=== PATIENT | female | born 1955 | race Caucasian/White ===

== ENCOUNTER 2019-03-02 14:42 | Emergency (ER) | payer BC ==
[~2019-03-02] VITALS: Ht 160 cm; Wt 65.9 kg
--- NOTE | 2019-03-02 14:58 | ED GI ---
General Stated Complaint: NAUSEA Source of Information: Patient, Family Exam Limitations: No Limitations History of Present Illness Date Seen by Provider: Mar 02, 2019 Time Seen by Provider: 14:56 Initial Comments To ER accompanied by with reports of nausea vomiting and diarrhea since Friday night 02/26/19. This began after eating a salad at [employer] the day before. They're concerned about possible Escherichia coli given the recent Escherichia coli outbreak associated with Ariel lettuce. She has had about a 6 lb weiht loss, no fevers, and non bloody diarrhea. Timing/Duration: 2-3 Days Severity/Quality: Cramping Location: Generalized Abdomen Radiation: No Radiation Activities at Onset: None Allergies and Home Medications Allergies Coded Allergies: Penicillins (Verified Allergy, Mild, 03/02/19) Patient Home Medication List Home Medication List Reviewed: Yes Review of Systems Review of Systems Constitutional: see HPI; No fever EENTM: No Symptoms Reported Respiratory: No Symptoms Reported Cardiovascular: No Symptoms Reported Gastrointestinal: See HPI, Abdominal Pain (cramping diffusely), Diarrhea, Nausea; Denies Rectal Bleeding; Vomiting, Other (no blood in stool) Musculoskeletal: no symptoms reported Skin: no symptoms reported Psychiatric/Neurological: No Symptoms Reported Endocrine: No Symptoms Reported Hematologic/Lymphatic: No Symptoms Reported Past Wwtbhzw-Rqxooy-Hqlliy Hx Patient Social History Recent Foreign Travel: No Contact w/Someone Who Travel: No Physical Exam Vital Signs Vital Signs - First Documented 03/02/19 15:26 Temp 36.8 Pulse 74 Resp 18 Pulse Ox 98 O2 Delivery Room Air Capillary Refill : Height/Weight/BMI Height: '" Weight: lbs. oz. kg; BMI Method: General Appearance: WD/WN, no apparent distress HEENT: PERRL/EOMI, normal ENT inspection Respiratory: no respiratory distress, no accessory muscle use Cardiovascular: regular rate, rhythm, no murmur Gastrointestinal: normal bowel sounds, soft, tenderness Extremities: normal range of motion, non-tender Neurologic/Psychiatric: alert, normal mood/affect, oriented x 3 Skin: normal color, warm/dry Progress/Results/Core Measures Results/Orders Lab Results Laboratory Tests Test 03/02/19 15:10 03/02/19 16:25 Range/Units White Blood Count 7.2 4.3-11.0 10^3/uL Red Blood Count 4.85 4.35-5.85 10^6/uL Hemoglobin 13.9 11.5-16.0 G/DL Hematocrit 41 35-52 % Mean Corpuscular Volume 85 80-99 FL Mean Corpuscular Hemoglobin 29 25-34 PG Mean Corpuscular Hemoglobin Concent 34 32-36 G/DL Red Cell Distribution Width 14.4 10.0-14.5 % Platelet Count 288 130-400 10^3/uL Mean Platelet Volume 11.0 H 7.4-10.4 FL Neutrophils (%) (Auto) 60 42-75 % Lymphocytes (%) (Auto) 26 12-44 % Monocytes (%) (Auto) 13 H 0-12 % Eosinophils (%) (Auto) 1 0-10 % Basophils (%) (Auto) 0 0-10 % Neutrophils # (Auto) 4.3 1.8-7.8 X 10^3 Lymphocytes # (Auto) 1.9 1.0-4.0 X 10^3 Monocytes # (Auto) 0.9 0.0-1.0 X 10^3 Eosinophils # (Auto) 0.1 0.0-0.3 10^3/uL Basophils # (Auto) 0.0 0.0-0.1 10^3/uL Sodium Level 140 135-145 MMOL/L Potassium Level 3.4 L 3.6-5.0 MMOL/L Chloride Level 108 H 98-107 MMOL/L Carbon Dioxide Level 22 21-32 MMOL/L Anion Gap 10 5-14 MMOL/L Blood Urea Nitrogen 13 7-18 MG/DL Creatinine 0.70 0.60-1.30 MG/DL Estimat Glomerular Filtration Rate > 60 BUN/Creatinine Ratio 19 Glucose Level 82 70-105 MG/DL Calcium Level 9.2 8.5-10.1 MG/DL Corrected Calcium 8.9 8.5-10.1 MG/DL Total Bilirubin 0.4 0.1-1.0 MG/DL Aspartate Amino Transf (AST/SGOT) 21 5-34 U/L Alanine Aminotransferase (ALT/SGPT) 19 0-55 U/L Alkaline Phosphatase 64 40-136 U/L Total Protein 7.5 6.4-8.2 GM/DL Albumin 4.4 3.2-4.5 GM/DL Lipase 6 L 8-78 U/L Micro Results Microbiology 03/02/19 C. difficile GDH Antigen & Toxins - Final, Complete My Orders Orders - TERRENCE HARMAN APRN Cbc With Automated Diff (03/02/19 14:46) Comprehensive Metabolic Panel (03/02/19 14:46) Ua Culture If Indicated (03/02/19 14:46) Lipase (03/02/19 14:46) Ed Iv/Invasive Line Start (03/02/19 14:46) Ondansetron Injection (Zofran Injectio (03/02/19 15:00) Hyoscyamine Sl Tablet (Levsin Sl Tablet) (03/02/19 15:00) Lactated Ringers (Lr 1000 Ml Iv Solution (03/02/19 15:00) Ketorolac Injection (Toradol Injection) (03/02/19 15:00) Stool Culture (03/02/19 14:54) C Difficile Ag + Toxin A/B. (03/02/19 14:58) Lactated Ringers (Lr 1000 Ml Iv Solution (03/02/19 16:00) Medications Given in ED Current Medications Medications Dose Ordered Sig/Layla Route Start Time Stop Time Status Last Admin Dose Admin Hyoscyamine Sulfate 0.125 mg ONCE ONCE PO 03/02/19 15:00 03/02/19 15:01 DC 03/02/19 15:06 0.125 MG Ketorolac Tromethamine 15 mg ONCE ONCE IVP 03/02/19 15:00 03/02/19 15:01 DC 03/02/19 15:07 15 MG Ondansetron HCl 8 mg ONCE ONCE IVP 03/02/19 15:00 03/02/19 15:01 DC 03/02/19 15:07 4 MG Vital Signs/I&O 03/02/19 15:26 Temp 36.8 Pulse 74 Resp 18 B/P (MAP) Pulse Ox 98 O2 Delivery Room Air Departure Impression Primary Impression: Nausea vomiting and diarrhea Disposition: HOME, SELF-CARE Condition: Improved Departure-Patient Inst. Decision time for Depature: 16:35 Referrals: SELF,ROMEL LAMAS (PCP/Family) Primary Care Physician Patient Instructions: Diarrhea and Traveler's Diarrhea, Adult (DC) Add. Discharge Instructions: 1. Return to ER for any concerns 2. Stay hydrated drinking more than usual and a better choice of liquids would be Gatorade plus water or Pedialyte. Avoid any antidiarrheal agents. Return to ER for any concerns. You should have repeat labs drawn on Friday of this week with your doctor. Use the nausea medication as directed. Scripts Promethazine HCl (Promethazine Tablet) 25 Mg Tablet 25 MG PO Q6H PRN for NAUSEA/VOMITING, #20 TAB Prov: TERRENCE HARMAN APRN 03/02/19 Copy Copies To 1: SELF,TERRENCE GALLAGHER MD, APRN Mar 02, 2019 14:58
[2019-03-02] MEDS ORDERED: KETOROLAC 30 MG/ML VIAL IVP ONE (15:00)
[2019-03-02] MEDS ORDERED: ONDANSETRON 4 MG/2 ML (SDV) Z0FRAN IVP ONE (15:00)
[2019-03-02] MEDS ORDERED: LACTATED RINGERS 1,000 ML IV SCH ×2 (15:00→16:00)
[2019-03-02] MEDS ORDERED: HYOSCYAMINE 0.125 MG (LEVSIN) TAB PO ONE (15:00)
[2019-03-02 15:20] LABS: BASOPHILS % (AUTO) 0 % (0-10); EOSINOPHILS # (AUTO) 0.1 10^3/uL (0.0-0.3); EOSINOPHILS % (AUTO) 1 % (0-10); HEMATOCRIT 41 % (35-52); HEMOGLOBIN 13.9 G/DL (11.5-16.0); LYMPHOCYTES # (AUTO) 1.9 X 10^3 (1.0-4.0); LYMPHOCYTES % (AUTO) 26 % (12-44); MEAN CORPUSCULAR HEMOGLOBIN 29 PG (25-34); MEAN CORPUSCULAR HGB CONC 34 G/DL (32-36); MEAN CORPUSCULAR VOLUME 85 FL (80-99); MONOCYTES # (AUTO) 0.9 X 10^3 (0.0-1.0); MONOCYTES % (AUTO) 13 % (0-12); NEUTROPHILS # (AUTO) 4.3 X 10^3 (1.8-7.8); NEUTROPHILS % (AUTO) 60 % (42-75); PLATELET COUNT 288 10^3/uL (130-400); RED CELL DISTRIBUTION WIDTH 14.4 % (10.0-14.5); WHITE BLOOD COUNT 7.2 10^3/uL (4.3-11.0)
[2019-03-02 15:44] LABS: ALANINE AMINOTRANSFERASE 19 U/L (0-55); ALBUMIN 4.4 GM/DL (3.2-4.5); ALKALINE PHOSPHATASE 64 U/L (40-136); BILIRUBIN,TOTAL 0.4 MG/DL (0.1-1.0); BUN/CREATININE RATIO 19; CALCIUM 9.2 MG/DL (8.5-10.1); CARBON DIOXIDE 22 MMOL/L (21-32); CHLORIDE 108 MMOL/L (98-107); GFR ESTIMATED > 60; GLUCOSE 82 MG/DL (70-105); LIPASE 6 U/L (8-78); POTASSIUM 3.4 MMOL/L (3.6-5.0); SODIUM 140 MMOL/L (135-145); TOTAL PROTEIN 7.5 GM/DL (6.4-8.2)
[2019-03-02 16:33] LABS: BILIRUBIN,URINE NEGATIVE (NEGATIVE); CLARITY,URINE CLEAR; COLOR,URINE YELLOW; GLUCOSE, URINE (UA) NEGATIVE (NEGATIVE); KETONES,URINE TRACE (NEGATIVE); LEUKOCYTE ESTERASE ,URINE NEGATIVE (NEGATIVE); NITRITE,URINE NEGATIVE (NEGATIVE); PROTEIN,URINE NEGATIVE (NEGATIVE)
[2019-03-02] MEDS ORDERED: PROM25TA14 PO (16:37)
[2019-03-02] MEDS ORDERED: RX-ONDANSETRON 4 MG ODT (ZOFRAN) PPK #4 PO STA (16:38)
[2019-03-02 16:44] LABS: BACTERIA,URINE TRACE /HPF
[2019-03-02 17:11] VITALS: BP 127/72
== END 2019-03-02 17:00 | disposition home or self-care (01) ==
LOC: EDUNIT# 14:42 → ER 14:44
DX: R11.2 Nausea with vomiting, unspecified (principal); R19.7 Diarrhea, unspecified; Z88.0 Allergy status to penicillin
CPT/HCPCS: 36415; 80053; 81000; 83690; 85025; 87015; 87045; 87046; 87324; 87449; 87899; 96361; 96374; 96375

== ENCOUNTER → 2019-10-08 | Outpatient (CLI) | payer BC ==
[~2019-10-08] MED LIST: HOLD METFORMIN - RECEIVED CONTRAST 20 ML VIAL IV SCH; IOHEXOL 350 MG/ML 100 ML (OMNIPAQUE 350) VIAL IV ONE; NS 100 ML (IVPB) BAG IV ONE; PROM25TA14 PO
--- NOTE | 2019-10-08 18:53 | Diagnostic Imaging Report ---
PROCEDURE: CT abdomen and pelvis with and without contrast. TECHNIQUE: Precontrast acquisitions were acquired through the abdomen and pelvis. Multiple contiguous axial images were obtained through the abdomen and pelvis after the administration of intravenous contrast. Auto Exposure Controls were utilized during the CT exam to meet ALARA standards for radiation dose reduction. INDICATION: Pain of two weeks' history. FINDINGS: Gallbladder is surgically absent. The liver, bile ducts, spleen, adrenals, and pancreas are unremarkable. The unobstructed kidneys appeared nonacute. There are some very mild hyperdensities within lower pole calyces bilaterally, believed to be tiny nonobstructing stones. The atherosclerotic abdominal aorta is nonaneurysmal and unobstructed. There was no diverticulitis. There is no pericecal inflammation. There are no findings of appendicitis but the appendix itself can never be discretely visualized. No focal inflammatory process. No ascites, abscess, hematoma, or acute fluid collection. No small or large bowel wall thickening. No perienteric or pericolonic edema. No abscess, hematoma, or other fluid collection. IMPRESSION: Probable punctate lower pole nonobstructing renal calculi. No ureteral stone or obstruction. No inflammatory process or acute abnormalities identified. Dictated by: Dictated on workstation # [id number]
== END ==
LOC: RAD 14:15
PROVIDERS: ATTEND Obstetrics & Gynecology
DX: R19.03 Right lower quadrant abdominal swelling, mass and lump (principal)
CPT/HCPCS: 74178

== ENCOUNTER 2019-11-04 15:28 | Outpatient (CLI) | payer BC ==
[~2019-11-04] VITALS: Ht 160 cm; Wt 67.7 kg
[~2019-11-04 15:28] MED LIST changes: +COLL1POW3 PO; -HOLD METFORMIN - RECEIVED CONTRAST 20 ML VIAL IV SCH; -IOHEXOL 350 MG/ML 100 ML (OMNIPAQUE 350) VIAL IV ONE; +METO-333 PO; +MULT-1136 PO; -NS 100 ML (IVPB) BAG IV ONE
== END 2019-11-04 15:43 ==
LOC: PREOP 15:28
PROVIDERS: ATTEND Obstetrics & Gynecology
DX: Z01.818 Encounter for other preprocedural examination (principal)

== ENCOUNTER 2019-11-10 07:03 | Day surgery (SDC) | payer BC ==
[2019-11-10] VITALS (11 sets, daily range): BP systolic 94–155; BP diastolic 55–72
[~2019-11-10] VITALS: Ht 160 cm; Wt 67.7 kg
[2019-11-10] MEDS ORDERED: LEVOFLOXACIN 250 MG/50 ML IVPB 50 ML IV ONE (07:15)
--- NOTE | 2019-11-10 07:18 | Progress Note-Pre Operative ---
Pre-Operative Progress Note H&P Reviewed The H&P was reviewed, patient examined and no changes noted. Date Seen by Provider: Nov 10, 2019 Time Seen by Provider: 07:18 Date H&P Reviewed: Nov 10, 2019 Time H&P Reviewed: 07:18 Pre-Operative Diagnosis: KIMI GUTIERREZ MD Nov 10, 2019 07:18
--- NOTE | 2019-11-10 07:19 | Progress Note-Post Operative ---
Post-Operative Progess Note Surgeon (s)/Community Manager (s) Surgeon KIMI ACUNA MD Community Manager: Christos DRUMMOND Pre-Operative Diagnosis HERNAN Post-Operative Diagnosis SAME Procedure & Operative Findings Date of Procedure 11/10/19 Procedure Performed/Findings PVS AND CYSTOSCOPY Anesthesia Type GENERAL Estimated Blood Loss Estimated blood loss (mL): NEGLIGIBLE Specimens/Packing Specimens Removed NONE Packing: VAGINAL KIMI ACUNA MD Nov 10, 2019 07:19
[2019-11-10] MEDS ORDERED: LACTATED RINGERS 1,000 ML IV PRN (07:28)
[2019-11-10] MEDS ORDERED: MIDAZOLAM 2 MG/2 ML (VERSED) VIAL IV ONE (07:30)
[2019-11-10] MEDS ORDERED: FAMOTIDINE 20MG/2ML IV (PEPCID) IV ONE (07:30)
[2019-11-10] MEDS ORDERED: ONDANSETRON 4 MG/2 ML (SDV) Z0FRAN IV ONE (07:30)
[2019-11-10] MEDS ORDERED: SCOPOLAMINE 1.5 MG (TRANSDERM-SCOP) PATCH TOP ONE (07:30)
[2019-11-10] MEDS ORDERED: D5 LR IV SOLUTION 1,000 ML IV SCH (07:38)
[2019-11-10] MEDS ORDERED: PROMETHAZINE INJ 25 MG/ML (PHENERGAN) AMP IM PRN ×2 (07:45→09:00)
[2019-11-10] MEDS ORDERED: BENZOCAINE/MENTHOL (DERMOPLAST) 60 ML CAN TP PRN ×2 (07:45→09:00)
[2019-11-10] MEDS ORDERED: ESTROGENS CONJ INJECTION 25 MG in WATER (STERILE) FOR INJECTION 5 ML IV ONE ×2 (07:45→09:00)
[2019-11-10] MEDS ORDERED: oxyCODONE/APAP 5/325MG (PERCOCET 5) TABLET PO PRN (07:45)
[2019-11-10] MEDS ORDERED: ONDANSETRON 4 MG/2 ML (SDV) Z0FRAN IVP PRN ×2 (07:45→09:00)
[2019-11-10] MEDS ORDERED: MEPERIDINE (DEMEROL) INJ 100 MG/ML IM PRN ×2 (07:45→09:00)
[2019-11-10 07:46] LABS: BASOPHILS # (AUTO) 0.1 10^3/uL (0.0-0.1); BASOPHILS % (AUTO) 1 % (0-10); EOSINOPHILS # (AUTO) 0.1 10^3/uL (0.0-0.3); EOSINOPHILS % (AUTO) 1 % (0-10); HEMATOCRIT 40 % (35-52); HEMOGLOBIN 13.1 G/DL (11.5-16.0); LYMPHOCYTES # (AUTO) 2.1 X 10^3 (1.0-4.0); LYMPHOCYTES % (AUTO) 29 % (12-44); MEAN CORPUSCULAR HEMOGLOBIN 28 PG (25-34); MEAN CORPUSCULAR HGB CONC 33 G/DL (32-36); MEAN CORPUSCULAR VOLUME 85 FL (80-99); MEAN PLATELET VOLUME 10.7 FL (7.4-10.4); MONOCYTES # (AUTO) 0.6 X 10^3 (0.0-1.0); MONOCYTES % (AUTO) 9 % (0-12); NEUTROPHILS # (AUTO) 4.4 X 10^3 (1.8-7.8); NEUTROPHILS % (AUTO) 61 % (42-75); PLATELET COUNT 291 10^3/uL (130-400); WHITE BLOOD COUNT 7.2 10^3/uL (4.3-11.0)
[2019-11-10] MEDS: LACTATED RINGERS 1,000 ML IV PRN ×2 (07:50→09:14)
[2019-11-10] MEDS ORDERED: BUP/EPI 0.5% 1:200,000 (SENSORCAINE) 30 ML VIAL ONE (08:23)
[2019-11-10] MEDS ORDERED: fentaNYL INJECTION 100 MCG/2 ML AMP ONE (08:32)
[2019-11-10] MEDS ORDERED: MIDAZOLAM 2 MG/2 ML (VERSED) VIAL ONE (08:34)
[2019-11-10] MEDS ORDERED: LIDOCAINE PF 2% 5 ML (XYLOCAINE) VIAL ONE (08:35)
[2019-11-10] MEDS ORDERED: WATER (STERILE) FOR INJECTION 10 ML ONE ×2 (08:35→11:08)
[2019-11-10] MEDS ORDERED: proPOfol 200 MG/20 ML (DIPRIVAN) VIAL IV ONE (08:35)
[2019-11-10] MEDS ORDERED: ceFAZolin INJECTION 1,000 MG ONE (08:35)
[2019-11-10] MEDS ORDERED: ROCURONIUM 10 MG/ML 5 ML SYRINGE IV ONE (08:36)
[2019-11-10] MEDS ORDERED: SEVOFLURANE (ULTANE) 15 ML INHAL SOLN ONE ×6 (08:36→10:29)
[2019-11-10] MEDS ORDERED: ONDANSETRON 4 MG/2 ML (SDV) Z0FRAN ONE (08:37)
--- NOTE | 2019-11-10 08:44 | Progress Note-Pre Operative ---
Pre-Operative Progress Note H&P Reviewed The H&P was reviewed, patient examined and no changes noted. Date Seen by Provider: Nov 10, 2019 Time Seen by Provider: 08:44 Date H&P Reviewed: Nov 10, 2019 Time H&P Reviewed: 08:44 Pre-Operative Diagnosis: vaginal prolapse/stress urinary incontinence/ovarian mass JONNIE DRUMMOND MD Nov 10, 2019 08:44
--- NOTE | 2019-11-10 08:45 | Progress Note-Post Operative ---
Post-Operative Progess Note Surgeon (s)/Respiratory Care Faculty (s) Surgeon JONNIE DRUMMOND MD Respiratory Care Faculty: Christos DRUMMOND Pre-Operative Diagnosis vaginal prolapse/stress urinary incontinence/ovarian mass Post-Operative Diagnosis same with pelvic adhesions, abnormal appendix, and pathology pending Procedure & Operative Findings Date of Procedure 11/10/19 Procedure Performed/Findings laparoscopic oophorectomy/anterior posterior vaginal repairs with and enterocele repair, Sacrospinous ligament fixation, LS appendectomy, extensive LS adhesiolysis - as well as pubovaginal sling and cysto by Dr. Alvarado Anesthesia Type GETA Estimated Blood Loss Estimated blood loss (mL): 100 cc Specimens/Packing Specimens Removed tube and ovary, appendix Packing: VAGINAL JONNIE DRUMMOND MD Nov 10, 2019 08:45
[2019-11-10] MEDS ORDERED: ESTRADIOL VAGINAL CREAM 42.5 GM (ESTRACE) VG ONE (08:51)
[2019-11-10] MEDS: KETOROLAC 30 MG/ML VIAL IVP SCH ×2 (09:00→15:00)
[2019-11-10] MEDS ORDERED: KETOROLAC 30 MG/ML VIAL ONE (10:28)
[2019-11-10] MEDS ORDERED: ESTROGENS CONJ IV 25 MG/5 ML (PREMARIN) VIAL ONE (11:07)
[2019-11-10] MEDS ORDERED: fentaNYL INJECTION 100 MCG/2 ML AMP IVP ONE (11:15)
[2019-11-10] MEDS ORDERED: morphine INJ 10 MG/ML 1ML (SYR OR VIAL) IVP ONE (11:15)
[2019-11-10] MEDS ORDERED: PROMETHAZINE INJ 25 MG/ML (PHENERGAN) AMP IVP ONE (11:15)
[2019-11-10] MEDS: ONDANSETRON 4 MG/2 ML (SDV) Z0FRAN IVP PRN ×2 (11:33→12:33)
--- NOTE | 2019-11-10 12:10 | NUR ---
HENRY RAMOS admitted to room 3304-1, with an admitting diagnosis of postop A/P, cytso pubo vag sling, on 11-10-19 from recovery via bed, accompanied by staff. HENRY RAMOS introduced to surroundings, call light, bed controls, phone, TV, temperature control, lights, meal times, smoking policy, visitor policy, side rail policy, bathrooms and showers. Patient Rights given to patient in the handbook. HENRY RAMOS verbalizes understanding that [facility] is not responsible for the loss or damage to any personal effects or valuables that are kept in the patients posession during their hospitalization. The following Patient Care Plans were discussed with the patient: Discharge Planning, pain management , postop poc. HENRY RAMOS verbalizes understanding of Interdisciplinary Patient Education. Patient and/or family were informed about the Rapid Response Team and its purpose.
--- NOTE | 2019-11-10 13:33 | OPERATIVE REPORT ---
DATE OF SERVICE: 11/10/2019 PREOPERATIVE DIAGNOSIS: On my part, stress urinary incontinence. POSTOPERATIVE DIAGNOSIS: On my part, stress urinary incontinence. OPERATION PERFORMED: Pubovaginal sling and cystoscopy. SURGEON: Velasquez Acuna MD ANESTHESIA: General. COMPLICATIONS: None. DESCRIPTION OF PROCEDURE: Under satisfactory general anesthesia with the patient in lithotomy position after Dr. Cruz performed the first part of his surgery that he will dictate. I went ahead and inserted a Reza catheter, draining clear urine. I passed the Solyx device on both sides using the described technique. The sling was sitting nicely under the mid urethra with no twisting, no tension and passage of a curved hemostat easily between it and the underlying urethra. I removed the Reza catheter and performed cystoscopy to confirm the integrity of the bladder, ureteral orifices and urethra with no foreign body and presence of the sling under the mid urethra. I left the bladder at least removed the cystoscope, performed a manual Valsalva maneuver and was negative. I reinserted the Reza catheter, draining clear fluid. Estimated blood loss on my part negligible. Then, Dr. Cruz proceeded with the rest of his surgery that he will dictate. Job ID: [id number] DocumentID: [id number] Dictated Date: 11/10/2019 10:13:00 Jacquard Card Cutter Date: 11/10/2019 13:32:52 Dictated By: VELASQUEZ ACUNA MD
--- NOTE | 2019-11-10 14:02 | OPERATIVE REPORT ---
DATE OF SERVICE: 11/10/2019 PREOPERATIVE DIAGNOSES: Pelvic mass, vaginal prolapse and stress urinary incontinence. POSTOPERATIVE DIAGNOSES: Pelvic mass, vaginal prolapse and stress urinary incontinence with inflamed, extensively scarred appendix, pelvic adhesions. OPERATIVE PROCEDURE: Laparoscopic extensive adhesiolysis, laparoscopic appendectomy and laparoscopic left oophorectomy as well as anterior and posterior vaginal repairs with enterocele repair and sacrospinous ligament suspension with Dr. Minor also doing a pubovaginal sling and cystoscopy. OPERATIVE DESCRIPTION: With the patient in the supine position under satisfactory general anesthesia, she was repositioned in dorsal lithotomy position in the [facility] and prepped and draped in the usual fashion for abdominal and vaginal surgery. A moistened Kerlix was placed in the vagina to distend the upper vagina for localization. The patient was brought in low dorsal lithotomy position after emptying her urinary bladder with a Reza catheter. A 5 mm incision made in the patient's left upper quadrant. Veress needle was placed through that incision into the abdominal cavity. Correct placement was confirmed with water drop test. The abdomen was insufflated with 2.4 liters of carbon dioxide and the Veress needle was removed and a 5 mm Optiview laparoscopic port placed under direct vision. The abdominal wall was transilluminated. Ports of 12 mm and 5 mm were placed infraumbilically and suprapubically respectively through incisions of those sizes. All three incision sites were infiltrated with 0.25% Marcaine with epinephrine prior to incision and port placement. The patient was placed in Trendelenburg, allowing the bowel spill partially above the pelvis. There was a sigmoid adherent to the left pelvic brim and obstructing view of the left ovary. The cecum was densely adherent to the round ligament on the right and to the bladder and to the right pelvic sidewall. The appendix was adherent down into the pelvic side wall and to the ovarian fossa and to the back of the uterus and to the round ligament. The appendix was inflamed and enlarged looking. The extensive adhesiolysis was undertaken to free the appendix and the cecum from their adhesions. Once it was completely released, then the pelvis was essentially normal at that point, decision was made to go ahead with appendectomy. The mesoappendix was divided over close to the base of the appendix and then the Endo-RIDDHI was placed across the base of the appendix and the balance of the mesoappendix then fired, severing it from its attachments. The stump of the appendix was treated with several drops of Betadine solution. The appendix was placed in the Endobag. Prior to using the Endobag, the left ovary was exposed by releasing the adhesions of the sigmoid to the left pelvic sidewall and left pelvic brim and the left IP ligament. With that done, and then an Endo-RIDDHI was placed across the IP ligament, fired, a second firing of that instrument across the mesovarium severed the ovary from its attachments. The ovary was then placed in the Endobag with the appendix and that was brought out through the umbilical incision. That tissue was sent to pathology for permanent section. The pelvis was examined for hemostasis, that being complete with no remaining abnormal pathology, the procedure was terminated. The operative instruments were removed under direct vision as were the ports. The abdomen was evacuated of insufflating gas in the process of removing the ports. The skin incisions were closed with suture after first closing the fascia at the infraumbilical incision with oynysq-pa-[id number] suture of 2-0 Vicryl. Attention was now turned to the pelvis. The patient was repositioned in dorsal lithotomy position. Weighted speculum placed in posterior fornix of vagina. The anterior vaginal wall was grasped with two Latonia clamps near its midline. An opening was made in the midline of the vaginal wall and extended from approximately 1.5 cm from the urethral meatus to the apex of the vagina. The vaginal wall was then carefully dissected off the muscularis of the vagina. The bladder wall was carefully dissected off the muscularis of the vagina back to the pubic rami bilaterally. The patient had a relatively large cystocele comprising a third-degree prolapse. The bladder was reduced. The endopelvic fascia was plicated along with the bladder wall, elevating the bladder and lengthening the urethra and restoring the bladder to its normal anatomic position. At this point, Dr. Minor assumed care of the patient. I remained to assist. Dr. Minor performed the pubovaginal sling and cystoscopy with no difficulties. He got good support and reported normal cystoscopy. Dr. Minor on completion of his portion, he turned up care of the patient to me. I resumed care of the patient, resected redundant anterior vaginal wall muscularis mucosa and closed the vaginal wall with a running locked suture of 3-0 Vicryl Rapide. Good support was evident and good hemostasis was achieved. Posterior repair was then affected by placing Latonia clamps on the perineum and hymenal ring at the 5 and 7 o'clock position, an inverted triangle of skin was removed from the perineal body and upright triangle from the posterior vaginal floor. The rectovaginal space was entered sharply and dissected bluntly to the apex of the vagina where it was explored for an enterocele, there was a small one was left intact. It was closed for the time being. Dissection was then carried over through the right rectal pillar to the right ischial spine into the sacrospinous ligament. The Capio device was loaded with Ethibond suture and that was placed through the sacrospinous ligament just approximately 1 cm medial to the ischial spine. A second suture was placed 0.5 cm medial to that. Both arms of both sutures were brought out through the apex of the vagina, tagged and held long for tying later. The rectovaginal space was obliterated after first using a pursestring suture to obliterate the enterocele. With that done, the rectovaginal space was obliterated with additional sutures of 2-0 Vicryl. The perineal body was restored with additional sutures of 2-0 Vicryl. Redundant posterior vaginal muscularis mucosa was removed sharply. The vaginal wall was closed with running locked suture of 3-0 Vicryl Rapide, that closure was continued past the hymenal ring down on the perineal body then back up subcutaneous to the hymenal ring where the suture was tied. Good support was evident. There was some bleeding in the midportion of the posterior vaginal wall closure. A single suture in a bwiwek-dx-[id number] fashion of 2-0 Vicryl was placed to affect hemostasis. Hemostasis was complete. The sacrospinous ligament suspension sutures were tied; as each was tied, the apex of the vagina was brought well back up into the pelvis. Those sutures were cut short. The vagina was examined for hemostasis that being complete and sponge and needle count being correct, the vagina was filled with Estrace vaginal cream and a pack of Kerlix gauze was placed. The Reza catheter was left to dependent drainage, it was draining clear yellow urine. Sponge and needle counts were correct. Blood loss was around 100 mL. The patient tolerated the procedure well and was uneventfully awakened from her general anesthesia and transferred to the recovery room in stable condition. Job ID: [id number] DocumentID: [id number] Dictated Date: 11/10/2019 10:52:55 Environmental Aid Date: 11/10/2019 14:01:19 Dictated By: JONNIE DRUMMOND MD MTDD
[2019-11-10] MEDS: D5 LR IV SOLUTION 1,000 ML IV SCH ×3 (15:30→22:43)
[2019-11-10] MEDS: KETOROLAC 15 MG/ML VIAL IVP SCH (17:53)
[2019-11-10] MEDS ORDERED: ESTR1TAB24 PO (20:49)
[2019-11-10] MEDS ORDERED: IBUP-1780 PO (20:49)
[2019-11-10] MEDS ORDERED: DCS100C PO (20:49)
[2019-11-10] MEDS ORDERED: OXYC1TAB87 PO (20:49)
--- NOTE | 2019-11-10 20:51 | Discharge Inst-Surgical ---
Discharge Inst-Surgical Depart Medication/Instructions New, Converted or Re-Newed RX: RX on Chart Consults/Follow Up Patient Instructions: as directed Orders & Referrals Follow Up Appt: RTC with me in 1 week for suture removal Call to make follow up appt. for patient in [address] Minor per his instructions Activity: Rest for 24 hours, than as tolerated. Wound Care: May remove Band-Aid tomorrow. Replace as desired. Keep incisions clean and dry. Wash daily with soap and water. Please call in RX to patient pharmacy. Diet: As tolerated-Clear Liquids only if nauseated. shower or tub bathe as desired. No driving for 24 hours, no alcoholic beverages for 24 hours, and nothing per vagina (no tampons, douching, or intercourse) for 4 weeks. Patient to return to the clinic as soon as possible for: Temperature greater than 101F, Severe Pain, Foul discharge from incision or vagina, Excessive Bleeding (more than a period). Activity Activity as Tolerated: No Diet Discharge Diet: No Restrictions JONNIE DRUMMOND MD Nov 10, 2019 20:51
[2019-11-11 00:45] VITALS: BP 119/64
[2019-11-11] MEDS: KETOROLAC 15 MG/ML VIAL IVP SCH ×3 (00:45→07:28)
[2019-11-11 03:55] VITALS: BP 126/58
[2019-11-11] MEDS: oxyCODONE/APAP 5/325MG (PERCOCET 5) TABLET PO PRN ×5 (05:35→21:42)
--- NOTE | 2019-11-11 08:06 | Progress Note ---
Standard Progress Note Progress Notes/Assess & Plan Date Seen by a Provider: Nov 11, 2019 Time Seen by a Provider: 07:56 Progress/Assessment & Plan this patient is without complaint. She does have some soreness in the surgical sites but has good pain control. She is not having any problems with nausea. She has not voided as of yet. Patient's called and I have talked to him on the telephone. He has reservations about her going home but I have reassured him that if all is well, it would be safe for her to go hometoday, if not we will not discharge her Vital Signs Date Time Temp Pulse Resp B/P (MAP) Pulse Ox O2 Delivery O2 Flow Rate FiO2 11/11/19 03:55 37.0 60 18 126/58 (80) 97 Room Air 11/11/19 00:45 37.2 58 18 119/64 (82) 96 Room Air 11/10/19 20:15 37.0 66 18 118/64 (82) 95 Room Air 11/10/19 20:15 95 Room Air 11/10/19 16:00 36.8 50 18 133/62 (85) 100 Room Air 11/10/19 13:05 36.7 46 16 118/66 (83) 99 Room Air 11/10/19 12:20 36.7 42 16 104/61 (75) 95 Room Air 11/10/19 12:20 95 Room Air 11/10/19 11:50 36.3 14 113/57 (75) 100 Room Air 11/10/19 11:50 Room Air 11/10/19 11:40 OxyMask 2 11/10/19 11:40 14 105/56 (72) 100 OxyMask 2 11/10/19 11:30 OxyMask 4 11/10/19 11:30 14 108/57 (74) 100 OxyMask 4 11/10/19 11:20 15 107/57 (74) 100 OxyMask 6 11/10/19 11:20 OxyMask 6 11/10/19 11:10 17 103/58 (73) 100 OxyMask 8 11/10/19 11:06 OxyMask 8 11/10/19 10:56 36.2 16 94/55 (68) 96 OxyMask 10 11/10/19 10:56 OxyMask 10 I & O 11/11/19 07:00 Intake Total 4610 ml Output Total 1975 ml Balance 2635 ml Vital signs are stable. Patient is afebrile. The abdomen is benign. The surgical incision dressings are clean and dry. Extremities show no clubbing cyanosis. There is no Homans sign. Assessment and plan postoperative day number 1 doing well. Plan is for routine convalescence care with discharge home when patient is ambulating, voiding, tolerating oral intake well, has good pain control, and bladder function is adequate. JONNIE DRUMMOND MD Nov 11, 2019 08:06
[2019-11-11 08:49] VITALS: BP 129/87
[2019-11-11] MEDS ORDERED: DOCUSATE SODIUM 100 MG (COLACE) CAP PO SCH (09:00)
--- NOTE | 2019-11-11 09:00 | NUR ---
coffee to bedside table. plan of care discussed with pt.
[2019-11-11] MEDS: DOCUSATE SODIUM 100 MG (COLACE) CAP PO SCH ×2 (09:43→21:35)
[2019-11-11] MEDS: ESTRADIOL 1 MG TAB (ESTRACE) PO SCH (09:43)
--- NOTE | 2019-11-11 10:07 | NUR ---
assisted up to bathroom, did not tolerate ambulating well due to increased pain with standing and walking. No void, pericare and pad/underwear on. Assisted back to bed. pt reports once in bed felt much better. Pt to HF position and to eat breakfast.
--- NOTE | 2019-11-11 11:14 | NUR ---
Assisted up to bathroom, toleratale ambulation slightly better. no void, pericare. assisted back to bed and pt requests pain pill. plan of care reviewed. pt states "I feel like I need to pee." bladder scan done 390ml noted. will notify dr braswell
--- NOTE | 2019-11-11 11:28 | NUR ---
Dr Minor to see patient and review plan of care.
[2019-11-11] MEDS: IBUPROFEN 800 MG (MOTRIN) TAB PO SCH ×2 (11:45→18:10)
--- NOTE | 2019-11-11 11:53 | Progress Note - Urology ---
Progress Note-Urology Progress Notes/Assess & Plan Progress/Assessment & Plan RECOVERED WELL BUT UNABLE TO VOID. NO LEAK. PLAN STRAIGHT CATH AND KEEP TONIGHT Final Diagnosis INCONTINENCE KIMI ACUNA MD Nov 11, 2019 11:53
[2019-11-11] MEDS ORDERED: IBUPROFEN 800 MG (MOTRIN) TAB PO SCH (12:00)
--- NOTE | 2019-11-11 12:00 | NUR ---
St cath done 600ml clear yellow urine output. plan of care reviewed. pt reports pressure is much better.
[2019-11-11 12:49] VITALS: BP 129/67
--- NOTE | 2019-11-11 12:50 | NUR ---
no IS in room, will notify respiratory of need.
--- NOTE | 2019-11-11 13:25 | NUR ---
respiratory notifiied of IS order
--- NOTE | 2019-11-11 15:29 | NUR ---
Assisted up to void, no void, pericare
--- NOTE | 2019-11-11 15:47 | Anesthesia-General Post-Op ---
General Patient Condition Mental Status/LOC: Same as Preop Cardiovascular: Satisfactory Nausea/Vomiting: Absent Respiratory: Satisfactory Pain: Controlled Complications: Absent Post Op Complications Complications None Follow Up Care/Instructions Patient Instructions None needed. Anesthesia/Patient Condition Patient Condition Patient was seen this morning and she was doing well, no complaints, stable vital signs, no apparent adverse anesthesia problems. AIDEE BIRMINGHAM DO Nov 11, 2019 15:47
[2019-11-11 17:06] VITALS: BP 133/71
[2019-11-11 21:35] VITALS: BP 129/60
[2019-11-12] VITALS: BP 128/64
[2019-11-12 04:25] VITALS: BP 141/63
[2019-11-12] MEDS: oxyCODONE/APAP 5/325MG (PERCOCET 5) TABLET PO PRN ×2 (04:25→10:56)
[2019-11-12] MEDS: IBUPROFEN 800 MG (MOTRIN) TAB PO SCH ×2 (04:25→11:32)
--- NOTE | 2019-11-12 07:23 | Progress Note ---
Standard Progress Note Progress Notes/Assess & Plan Date Seen by a Provider: Nov 12, 2019 Time Seen by a Provider: 07:21 Progress/Assessment & Plan this patient is without complaint. She does have some soreness in the surgical sites but has good pain control. She is not having any problems with nausea. She has not voided as of yet. Patient's called and I have talked to him on the telephone. He has reservations about her going home but I have reassured him that if all is well, it would be safe for her to go hometoday, if not we will not discharge her Vital Signs Date Time Temp Pulse Resp B/P (MAP) Pulse Ox O2 Delivery O2 Flow Rate FiO2 11/11/19 03:55 37.0 60 18 126/58 (80) 97 Room Air 11/11/19 00:45 37.2 58 18 119/64 (82) 96 Room Air 11/10/19 20:15 37.0 66 18 118/64 (82) 95 Room Air 11/10/19 20:15 95 Room Air 11/10/19 16:00 36.8 50 18 133/62 (85) 100 Room Air 11/10/19 13:05 36.7 46 16 118/66 (83) 99 Room Air 11/10/19 12:20 36.7 42 16 104/61 (75) 95 Room Air 11/10/19 12:20 95 Room Air 11/10/19 11:50 36.3 14 113/57 (75) 100 Room Air 11/10/19 11:50 Room Air 11/10/19 11:40 OxyMask 2 11/10/19 11:40 14 105/56 (72) 100 OxyMask 2 11/10/19 11:30 OxyMask 4 11/10/19 11:30 14 108/57 (74) 100 OxyMask 4 11/10/19 11:20 15 107/57 (74) 100 OxyMask 6 11/10/19 11:20 OxyMask 6 11/10/19 11:10 17 103/58 (73) 100 OxyMask 8 11/10/19 11:06 OxyMask 8 11/10/19 10:56 36.2 16 94/55 (68) 96 OxyMask 10 11/10/19 10:56 OxyMask 10 I & O 11/11/19 07:00 Intake Total 4610 ml Output Total 1975 ml Balance 2635 ml Vital signs are stable. Patient is afebrile. The abdomen is benign. The surgical incision dressings are clean and dry. Extremities show no clubbing cyanosis. There is no Homans sign. Assessment and plan postoperative day number 1 doing well. Plan is for routine convalescence care with discharge home when patient is ambulating, voiding, tolerating oral intake well, has good pain control, and bladder function is adequate. November 12, 2019 Patient is without complaint except inability to void. She has good pain control. Patient is ambulating, tolerating oral intake well Vital Signs Date Time Temp Pulse Resp B/P (MAP) Pulse Ox O2 Delivery O2 Flow Rate FiO2 11/12/19 04:25 36.9 53 18 141/63 (89) 96 Room Air 11/12/19 00:00 37.0 60 18 128/64 (85) 96 Room Air 11/11/19 21:35 37.4 58 18 129/60 (83) 96 Room Air 11/11/19 21:35 96 Room Air 11/11/19 17:06 37.5 58 18 133/71 (91) 95 Room Air 11/11/19 13:36 Room Air 11/11/19 12:49 37.1 65 18 129/67 (87) 97 Room Air 11/11/19 09:11 96 Room Air 11/11/19 08:49 37.5 56 18 129/87 (101) 96 Room Air I & O 11/12/19 07:00 Intake Total 1860 ml Output Total 1825 ml Balance 35 ml Vital signs are stable. Patient is afebrile. The abdomen is benign. The surgical incisions are clean dry and intact Extremities show no clubbing or cyanosis. There is no Homans sign. Pelvic exam is deferred Assessment and plan postoperative day number 2 doing well. Patient is ready for discharge home from my perspective. However patient has urinary retention and management is per Dr. Alvarado. Final Diagnosis vaginal prolapse and urinary incontinence JONNIE DRUMMOND MD Nov 12, 2019 07:23
[2019-11-12] MEDS: ESTRADIOL 1 MG TAB (ESTRACE) PO SCH (08:15)
[2019-11-12] MEDS: DOCUSATE SODIUM 100 MG (COLACE) CAP PO SCH (08:15)
[2019-11-12 08:25] VITALS: BP 116/57
--- NOTE | 2019-11-12 08:25 | NUR ---
Pt states she has attempted to void without success. 09 Dr Minor called to inquire of pt status. Physician ordered wilcox catheter to be inserted and to go to office 11/15 for wilcox removal. 914 Pt uncomfortable due to sensation of full bladder. Wilcox inserted with 500 ml of clear urine. 09 Dr Minor here - made rounds and discussed with pt the option of self cath. Pt states she prefers this and wants to learn. 1200 Pt states she is feeling bladder spasms. Pt desire wilcox to be d c'd. Pt now nervous about learning self cath. Wants to wait on 's arrival so he can learn. Pt felt relief from bladder spasms after wilcox was removed (1500ml). Light pink-red vaginal bleeding. 1400 Pt's arrived and demonstrated intermittent catheterization. Hand out given - female self cath. seems confident of procedure. Discussed per handout - anatomy, infections signs and symptoms, how to clean catheter and measuring of urine from cath and urination. Called in scripts including Cipro. 1505 Discharge to home via wheelchair.
[2019-11-12] MEDS ORDERED: CIPR-225 PO (10:31)
[2019-11-12] MEDS ORDERED: TRAM50TA3 PO (10:35)
[2019-11-12 13:35] VITALS: BP 116/57
[2019-11-13] MEDS ORDERED: PATCH REMOVAL TP NR (07:30)
== END 2019-11-12 15:05 | disposition home or self-care (01) ==
LOC: SDC 07:03 → WS 12:10 → SDC 11-12 15:05
PROVIDERS: ATTEND Obstetrics & Gynecology
DX: N83.8 Other noninflammatory disorders of ovary, fallopian tube and broad ligament (principal); N39.3 Stress incontinence (female) (male); N81.10 Cystocele, unspecified; N73.6 Female pelvic peritoneal adhesions (postinfective); N81.5 Vaginal enterocele; I10 Essential (primary) hypertension; E11.9 Type 2 diabetes mellitus without complications; Z79.899 Other long term (current) drug therapy; Z79.84 Long term (current) use of oral hypoglycemic drugs; Z88.0 Allergy status to penicillin; Z90.49 Acquired absence of other specified parts of digestive tract; Z90.710 Acquired absence of both cervix and uterus
CPT/HCPCS: 57265; 57288; 58661; 82962; 85025; 87081; 88304; 88305; C1771; 36415

== ENCOUNTER 2021-02-08 12:21 | Outpatient (CLI) | payer BC ==
[~2021-02-08] VITALS: Ht 160 cm; Wt 68.0 kg
[2021-02-08 12:15] VITALS: BP 132/78
[~2021-02-08 12:21] MED LIST changes: +CIPR-225 PO; +DOCU-239 PO; +ESTR1TAB24 PO; +IBUP-1780 PO; +OXYC1TAB87 PO; +TRAM50TA3 PO
[2021-02-08] MEDS ORDERED: diphenhydrAMINE 50 MG/ML INJ (BENADRYL) IV PRN (13:30)
[2021-02-08] MEDS ORDERED: EPINEPHrine INJECTION 1 MG/ML AMP IM PRN (13:30)
[2021-02-08] MEDS ORDERED: ONDANSETRON 4 MG/2 ML (SDV) Z0FRAN IV PRN (13:30)
[2021-02-08] MEDS ORDERED: CASIRIVIMAB/IMDEVIMAB 1,200 MG in NS (IVPB) 250 ML IV ONE (13:30)
[2021-02-08] MEDS ORDERED: ACETAMINOPHEN 500 MG TAB (TYLENOL) PO PRN (13:30)
[2021-02-08 14:23] VITALS: BP 126/56
== END 2021-02-08 15:10 | disposition home or self-care (01) ==
LOC: INFUSION 12:21
PROVIDERS: ATTEND Family Medicine
DX: U07.1 COVID-19 (principal)

== ENCOUNTER 2022-11-18 18:35 | Emergency (ER) | payer MEDICARE, OTHER ==
[~2022-11-18] VITALS: Ht 160 cm; Wt 77.7 kg
--- NOTE | 2022-11-18 18:40 | ED Fall/Injury ---
General Stated Complaint: FALL History of Present Illness Date Seen by Provider: Nov 18, 2022 Time Seen by Provider: 18:39 Initial Comments 67-year-old female fell and hit the side of her rainbows in her truck yesterday. She is having left-sided pain that is not better today and has pain with a deep breath in her left rib area. Presents because she has family members and wanted to get checked out Allergies and Home Medications Allergies Coded Allergies: Penicillins (Verified Allergy, Severe, ANAPHYLAXIS, 02/08/21) PT HAS RECEIVED ANCEF AND KEFLEX IN THE PAST WITH NO ISSUES Patient Home Medication List Home Medication List Reviewed: Yes Ciprofloxacin HCl (Cipro) 500 Mg Tablet, 500 MG PO BID Prescribed by: THELMA LYLE on 11/12/19 103 Collagen, Hydrolysate (Bovine) (Collagen Hydrolysate) 1 Gm Powder, 1 GM PO DAILY, (Reported) Entered as Reported by: GIBSON CANNON on 11/04/191511 Docusate Sodium (Dok) 100 Mg Capsule, 100 MG PO BID Prescribed by: JONNIE RICARDO on 11/10/192048 Estradiol (Estradiol Tablet) 1 Mg Tablet, 1 MG PO DAILY Prescribed by: JONNIE RICARDO on 11/10/192048 Ibuprofen (Ibuprofen) 800 Mg Tablet, 800 MG PO Q6HR Prescribed by: JONNIE RICARDO on 11/10/192048 Metoprolol Tartrate (Metoprolol Tartrate) 25 Mg Tablet, 25 MG PO BID, (Reported) Entered as Reported by: GIBSON CANNON on 11/04/191511 Multivitamin (Multivitamin) 1 Each Tablet, 1 EACH PO DAILY, (Reported) Entered as Reported by: GIBSON CANNON on 11/04/191511 Oxycodone HCl/Acetaminophen (Percocet 5-325 mg Tablet) 1 Each Tablet, 1 TAB PO Q4H PRN for PAIN-MODERATE (5-7) Prescribed by: JONNIE RICARDO on 11/10/192048 Tramadol HCl (Tramadol HCl) 50 Mg Tablet, 50 MG PO Q4H Prescribed by: THELMA LYLE on 11/12/19 103 Review of Systems Review of Systems Constitutional: see HPI Eyes: No Symptoms Reported Ears, Nose, Mouth, Throat: no symptoms reported Respiratory: see HPI Cardiovascular: no symptoms reported Gastrointestinal: no symptoms reported Genitourinary: no symptoms reported Musculoskeletal: see HPI Skin: no symptoms reported Psychiatric/Neurological: No Symptoms Reported Past Qbhagat-Fqdjkq-Fjgavg Hx Seasonal Allergies Seasonal Allergies: Yes (MILD) Past Medical History Surgeries: Yes (NECK ) Gallbladder, Hysterectomy Respiratory: No Currently Using CPAP: No Currently Using BIPAP: No Cardiac: Yes Hypertension Neurological: No 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 oz. kg; 26.44 BMI Method: General Appearance: WD/WN, no apparent distress Neck: full range of motion, supple Cardiovascular: normal peripheral pulses, regular rate, rhythm Respiratory: lungs clear, normal breath sounds, other (Tenderness left chest wall) Gastrointestinal: non tender, soft Extremities: normal range of motion Neurologic/Psychiatric: alert, normal mood/affect, oriented x 3; No abnormal gait Skin: normal color, warm/dry Progress/Results/Core Measures Results/Orders My Orders Orders - PRACHI EPPS DO Ribs/Unilateral With Chest (11/18/22 18:50) Vital Signs/I&O 11/18/22 18:43 Temp 36.7 Pulse 62 Resp 14 B/P (MAP) 160/73 (102) Pulse Ox 99 O2 Delivery Room Air Progress Progress Note : Progress Note Patient's x-rays ordered reviewed with initial interpretation of negative by me with final interpretation per radiology report. Patient with likely rib contusion. Discussed supportive care including Tylenol, ibuprofen, topical lidocaine and topical Voltaren. Patient was stable and discharged home Diagnostic Imaging Diagonstic Imaging: Xray Plain Films/CT/US/NM/MRI: chest Comments Date of Exam:11/18/22 RIBS/UNILATERAL WITH CHEST INDICATION: Fall, left-sided rib pain, limited inspiratory volumes. FINDINGS: Frontal chest and three-view left rib series performed. No lung contusion, pneumothorax, or hemothorax. Diaphragms are smooth. No free air beneath the diaphragms. Lungs are clear. The oblique left rib series showed no rib fracture deformity or bony destruction. No focal pleural hematoma evident. No chest wall gas. IMPRESSION: Unremarkable frontal chest and left rib series. Departure Impression Primary Impression: Contusion of rib on left side Qualified Codes: S20.212A - Contusion of left front wall of thorax, initial encounter Additional Impression: Fall Qualified Codes: W19.XXXA - Unspecified fall, initial encounter Disposition: HOME, SELF-CARE Condition: Stable Departure-Patient Inst. Referrals: ROMEL MARKS MD (PCP/Family) Primary Care Physician Patient Instructions: Bruised Rib, Minor Contusion ED Add. Discharge Instructions: 4% topical lidocaine cream, gel or patch use as directed on package as needed for pain. Voltaren/diclofenac cream or gel use as directed on package as needed for pain. Tylenol or ibuprofen as needed. Warm moist heat 10 to 15 minutes at a time 3-4 times daily. Follow-up with your primary care provider if symptoms have not improved over the 7 to 10 days. PRACHI EPPS DO Nov 18, 2022 18:40
[2022-11-18 18:43] VITALS: BP 160/73
--- NOTE | 2022-11-18 19:14 | Diagnostic Imaging Report ---
INDICATION: Fall, left-sided rib pain, limited inspiratory volumes. FINDINGS: Frontal chest and three-view left rib series performed. No lung contusion, pneumothorax, or hemothorax. Diaphragms are smooth. No free air beneath the diaphragms. Lungs are clear. The oblique left rib series showed no rib fracture deformity or bony destruction. No focal pleural hematoma evident. No chest wall gas. IMPRESSION: Unremarkable frontal chest and left rib series. Dictated by: Dictated on workstation # [id number]
== END 2022-11-18 19:21 | disposition home or self-care (01) ==
LOC: EDUNIT# 18:35 → ER FS 18:37
DX: S20.212A Contusion of left front wall of thorax, initial encounter (principal); W17.89XA Other fall from one level to another, initial encounter; Y92.410 Unspecified street and highway as the place of occurrence of the external cause
CPT/HCPCS: 71101